=== PATIENT | female | born 1940 | race Caucasian/White ===

== ENCOUNTER 2017-04-07 08:32 | Inpatient (IN) | payer OTHER ==
[~2017-04-07] VITALS: Ht 157.5 cm; Wt 87.5 kg
[~2017-04-07 08:32] MED LIST: ALLOPURINOL100 MG PO; AMLODIPINE BESYL5 M1 PO; ATIVAN1 MG PO; BAY PO; COLACE100 MG PO; COZAAR100 MG PO; ESCITALOPRAM10 M1 PO; HYDROCODONE/ACE1 TA2 PO; IRON325 MG PO; LAC PO; LANTUS SOLOS100 U/M1 SQ; LASIX40 MG PO; LEV500 PO; LEVAQUIN750 MG PO; LIPI20 PO; LOR; METHIMAZOLE5 MG PO; METOPROLOL SUCC50 M2 PO; NOR10T PO; PRA40 PO; VITAMIN C100 M1 PO
--- NOTE | 2017-04-07 08:42 | NUR ---
PT BIBA FROM HOME WITH C/O SOB X1 DAY AND POSTERIOR NECK PAIN THAT RADIATES DOWN TO HER LOW BACK, DENIES ANY TRAUMA OR INJURY, PT DESCRIBES THE PAIN "SHARP", PT BREATHING IS EVEN AND UNLABORED, PLACED ON 2L NC FOR COMFORT, PT HAS HX OF DM AND DE, TAKES INSULIN, PER MEDICS BS 335, PT REPORTS SHE DID NOT TAKE ANY OF HER MEDICATIONS THIS AM, PT IS AAO4, NO ACUTE DISTRESS, NSR ON CM, PT REPORTS FEELING "TIRED" FOR "2 MONTHS", AWAITING MSE
--- NOTE | 2017-04-07 08:47 | NUR ---
DR. LEON AT BEDSIDE FOR MSE
--- NOTE | 2017-04-07 08:47 | NUR ---
MSE BY DR. LEON.
[2017-04-07 09:06] LABS: BASOPHIL % 0.3 % (0-2); PLATELET COUNT 137 x10^3mcL (130-400)
[2017-04-07 09:07] LABS: RED CELL DISTRIBUTION WIDTH 19.2 % (11.5-14.5)
[2017-04-07 09:31] LABS: CALCIUM 8.8 mg/dL (8.5-10.1); CARBON DIOXIDE 24.8 mmol/L (21-32); CHLORIDE SERUM 105 mmol/L (98-107); CREATININE SERUM 1.6 mg/dL (0.6-1.0); GLUCOSE SERUM 366 mg/dL (74-106); SODIUM SERUM 138 mmol/L (136-145)
[2017-04-07 09:35] LABS: ALKALINE PHOSPHATASE 96 U/L (46-116); ALT/SGPT 23 U/L (14-59); AST/SGOT 24 U/L (15-37); BILIRUBIN TOTAL 0.59 mg/dL (0.20-1.00); PHOSPHOROUS 2.8 mg/dL (2.5-4.9); TOTAL PROTEIN, SERUM 6.2 g/dL (6.4-8.2); URIC ACID 8.6 mg/dL (2.6-6.0)
[2017-04-07 09:36] LABS: ALBUMIN 3.1 g/dL (3.4-5.0); CHOLESTEROL 75 mg/dL (<200); HDL CHOLESTEROL 27 mg/dL (40-60)
--- NOTE | 2017-04-07 09:56 | NUR ---
PT SLEEPING EASILY AROUSABLE, NO ACUTE DISTRESS, DENIES PAIN AT THIS TIME AND REPORTS SOB HAS IMPROVED
--- NOTE | 2017-04-07 10:29 | NUR ---
PT SLEEPING, NO ACUTE DISTRESS, DAUGHTER AT BEDSIDE
--- NOTE | 2017-04-07 10:55 | NUR ---
DR. LEON AT BEDSIDE TO DISCUSS RESULTS AND PLAN OF CARE WITH PT AND PT DAUGHTER
[2017-04-07] MEDS ORDERED: LASIX80 MG PO (11:13)
[2017-04-07] MEDS ORDERED: ATORVASTATIN CA40 M1 PO (11:13)
[2017-04-07] MEDS ORDERED: COZAAR100 MG PO (11:14)
[2017-04-07] MEDS ORDERED: VITB12I (11:14)
[2017-04-07] MEDS ORDERED: ISOSORBIDE MONO30 MG PO (11:14)
[2017-04-07] MEDS ORDERED: ESCITALOPRAM10 M1 PO (11:14)
--- NOTE | 2017-04-07 11:14 | NUR ---
PT MEDICATED PER ORDER WITH REGULAR INSULIN 6 UNITS, VERIFIED WITH [facility] RN
--- NOTE | 2017-04-07 11:30 | NUR ---
REPORT TO LUIS BISHOP TO ASSUME CARE, PT TO BE TRANSFERRED TO ROOM 241B
--- NOTE | 2017-04-07 12:00 | NUR ---
REC PT VIA GURNEY FROM E.R. A/O X4. BREATHING EVEN AND UNLABORED ON 2L NC. VS:119/67. MAP 101. RESP 20. 02 99 ON 2L NC. TEMP 97.4 . DENIES ANY CHEST PAIN, SOB OR RESP DISTRESS AT THIS TIME. LUNGS CLEAR, S1 S2 PRESENT. BOWEL SOUNDS PRESENT IN ALL FOUR QUADS. SKIN WARM TO TOUCH AND INTACT. PT IS ABM WITH GEN WEAKNESS AT THIS TIME. PT DENIES ANY DIZZNESS OR WEAKNESS TO HER LOWER EXT. CALL LIGHT IN REACH. BED IN LOW POSITION. PT WILL USE CALL LIGHT IF SHE NEEDS ASSISTANCE.
[2017-04-07 12:50] VITALS: BP 119/67
[2017-04-07 13:38] LABS: RED BLOOD CELLS 4.43 M/mm3 (4.10-5.10)
[2017-04-07 13:42] LABS: T3 TOTAL 0.89 ng/mL
[2017-04-07 13:47] LABS: TOTAL IRON BINDING CAPACITY 361 ug/dL (250-450)
[2017-04-07 13:54] LABS: IRON 17 ug/dL (50-170)
[2017-04-07 13:59] LABS: FREE T4 1.1 ng/dL (0.76-1.46); FREE THYROXINE INDEX 2.2 ug/dL (1.4-4.5); T4(THYROXINE) 5.9 ug/dL (4.7-13.3)
[2017-04-07 14:00] VITALS: BP 136/58
--- NOTE | 2017-04-07 14:16 | NUR ---
PT ACCU CHECK 258. COVERED IT WITH [address] INS[address] LARISSA DUMONT.
[2017-04-07] MEDS ORDERED: METOPROLOL SUCC50 M2 PO (15:35)
[2017-04-07 17:48] VITALS: BP 146/65
--- NOTE | 2017-04-07 17:55 | NUR ---
PT BP 146/65. MAP 92. HR 68. DOCTOR LARISSA DUMONT.
--- NOTE | 2017-04-07 18:01 | NUR ---
LAB CALLED. PT TROPONIN 0.116. DOCTOR LARISSA AWARE.
--- NOTE | 2017-04-07 19:02 | NUR ---
PT IS RESTING IN BED WITH DAUGHTER BY HER SIDE. A/O X4 . TELE 56. NSR. ON 2L NC 98 02. IV TO THE RIGHT HAND. PATENT AND INTACT. PT DENIES ANY CHEST PAIN OR DISCOMFORT AT THIS TIME. CALL LIGHT IN REACH . BED IN LOW POSITION. PT KNOW TO CALL FOR ASSISTANCE. WILL ENDORSE PLAN OF CARE TO INCOMING NURSE.
--- NOTE | 2017-04-07 20:36 | NUR ---
RECEIVED PT IN BED EATING DINNER TOLERATING WELL , PT DENY N/V AT THE MOMENT , BS ACTIVE X4, ABD SOFT , LUNG SOUNDS CTA . ON TELE NUMBER 56 THAT SHOWS NSR HR 74,PIV INTACT INFUSING WELL . CALL LIGHT WITHIN PT ;S REACH , WILL CON'T TO MONITOR AND ASSIST PT WITH CARE .
[2017-04-07 21:27] VITALS: BP 134/45
[2017-04-08 05:40] VITALS: BP 123/61
[2017-04-08 06:26] LABS: BASOPHIL % 0.4 % (0-2); PLATELET COUNT 137 x10^3mcL (130-400)
[2017-04-08 06:29] LABS: microscopic required? YES; urine erythrocyte NEGATIVE (NEGATIVE)
--- NOTE | 2017-04-08 06:31 | NUR ---
NO CHANGES OF CONDITION NOTED ,ALL DUE MEDS GIVEN NO REATION NOTED, TELE NSR ,
[2017-04-08 06:34] LABS: CALCIUM 8.6 mg/dL (8.5-10.1); CARBON DIOXIDE 26.1 mmol/L (21-32); CHLORIDE SERUM 108 mmol/L (98-107); CREATININE SERUM 1.4 mg/dL (0.6-1.0); GLUCOSE SERUM 220 mg/dL (74-106); MAGNESIUM 2.1 mg/dL (1.8-2.4); PHOSPHOROUS 3.4 mg/dL (2.5-4.9); POTASSIUM SERUM 4.7 mmol/L (3.5-5.1); SODIUM SERUM 143 mmol/L (136-145)
[2017-04-08 06:45] LABS: RED CELL DISTRIBUTION WIDTH 19.8 % (11.5-14.5)
--- NOTE | 2017-04-08 07:50 | NUR ---
RECEIVED PT SITTING UP AT BEDSIDE, DENIES ANY DISCOMFORT. A/A/OX4 DENIES OGDEN. RESP EVEN AND UNLABORED WITH CLEAR BS BILAT. DENIES ANY SOB/CP/PRESURE AT THIS TIME. NO EDEMA NOTED. ABD SOFT, NONTENDER WITH ACTIVE BS X4. DENIES ANY N/V AT THIS TIME. VOIDING FREELY. CALL LIGHT IN REACH NEEDS ATTENDED TO.
[2017-04-08 09:04] VITALS: BP 132/51
[2017-04-08] MEDS ORDERED: NATURAL IRON65 MG PO (13:16)
[2017-04-08 13:45] VITALS: BP 144/48
[2017-04-08 14:04] VITALS: BP 144/48
[2017-04-08] MEDS ORDERED: PHARMASSURE VI500 MG PO (15:23)
[2017-04-08] MEDS ORDERED: GOOD SENSE ASPI81 M3 PO (15:23)
--- NOTE | 2017-04-08 15:40 | NUR ---
SPOKE WITH DR. MUÑOZ COVERING FOR DR. GLASS, MADE AWARE OF ELEVATION IN BS AT 355 AND PT REPORTED LANTUS DOSING NOT INDICATED IN D/C MED REC. CHECKED WITH PT'S PHAMACY AND COMFIRM PARTIAL DOSING. GAVE OK D/C PT AND INSTRUCT PT TO CONT HOME DOSE OF LANTUS. PT MADE AWARE, MAKING ARRANGEMENTS FOR TRANSPORTAION HOME.
--- NOTE | 2017-04-08 17:39 | NUR ---
PT PROVIDED WITH D/C HOME INSTRUCTIONS. GIVEN MEDICATION/PRESCRIPTION EDUCATION. MADE AWARE OF F/U APPT WITH PCP AND INSTRUCTED TO CALL DR. VELAZQUEZ'S OFFICE TO SCHEDULE APPT. PT VERBALIZED UNDERSTANDING OF INSTRUCTIONS. TELE AND IV D/C'D CATHETER INTACT. PT TRANSPORTED TO [facility] WITH ALL PERSONAL BELONGINGS IN HAND FREE OF ANY APPARENT DISTRESS.
== END 2017-04-08 17:42 | disposition home or self-care (01) | DRG 311 ==
LOC: ED 08:32 → DU 11:01
PROVIDERS: Emergency Medicine; ADMIT Family Medicine Sports Medicine
DX: I24.8 Other forms of acute ischemic heart disease (principal); N17.0 Acute kidney failure with tubular necrosis; I13.0 Hypertensive heart and chronic kidney disease with heart failure and stage 1 through stage 4 chronic kidney disease, or unspecified chronic kidney disease; E44.0 Moderate protein-calorie malnutrition; N18.2 Chronic kidney disease, stage 2 (mild); I50.9 Heart failure, unspecified; E11.22 Type 2 diabetes mellitus with diabetic chronic kidney disease; E11.65 Type 2 diabetes mellitus with hyperglycemia; E11.51 Type 2 diabetes mellitus with diabetic peripheral angiopathy without gangrene; D50.9 Iron deficiency anemia, unspecified; F32.9 Major depressive disorder, single episode, unspecified; E78.5 Hyperlipidemia, unspecified; I25.2 Old myocardial infarction; E66.9 Obesity, unspecified; Z68.35 Body mass index [BMI] 35.0-35.9, adult; Z86.73 Personal history of transient ischemic attack (TIA), and cerebral infarction without residual deficits; Z79.4 Long term (current) use of insulin; Z79.82 Long term (current) use of aspirin
CPT/HCPCS: 83880; 84439; J1815; J1885; J2060; J7030; J7040; J7060; Q0092

== ENCOUNTER 2018-01-21 14:25 | Emergency (ER) | payer OTHER ==
[~2018-01-21] VITALS: Ht 157.5 cm; Wt 84.8 kg
[~2018-01-21 14:25] MED LIST changes: +ATORVASTATIN CA40 M1 PO; +GOOD SENSE ASPI81 M3 PO; +ISOSORBIDE MONO30 MG PO; +LASIX80 MG PO; +NATURAL IRON65 MG PO; +PHARMASSURE VI500 MG PO; +VITB12I
[2018-01-21 14:35] VITALS: Ht 157.5 cm; Wt 84.8 kg
[2018-01-21 16:32] VITALS: BP 149/75
== END 2018-01-21 16:32 | disposition home or self-care (01) ==
LOC: ED 14:25
DX: S80.12XA Contusion of left lower leg, initial encounter (principal); S80.212A Abrasion, left knee, initial encounter; I10 Essential (primary) hypertension; E11.9 Type 2 diabetes mellitus without complications; I21.9 Acute myocardial infarction, unspecified; Z88.0 Allergy status to penicillin; Z88.5 Allergy status to narcotic agent; Z88.6 Allergy status to analgesic agent; W18.30XA Fall on same level, unspecified, initial encounter; Y93.89 Activity, other specified; Y92.89 Other specified places as the place of occurrence of the external cause; Y99.8 Other external cause status
CPT/HCPCS: 90715

== ENCOUNTER 2019-01-03 18:50 | Inpatient (IN) | payer OTHER ==
[~2019-01-03] VITALS: Ht 157.5 cm; Wt 86.6 kg
[2019-01-03 18:54] VITALS: Ht 157.5 cm; Wt 86.6 kg
--- NOTE | 2019-01-03 19:00 | NUR ---
EKG IN PROGRESS.
--- NOTE | 2019-01-03 19:11 | NUR ---
PT CAME TO ED CO FLANK PAIN X3 DAYS. PT STS SHE HAS EXPERIENCED N/V/D W/FLANK PAIN. PT STS SHE HAS BEEN SEEN HERE BEFORE FOR THIS SAME PAIN. PT STS THE PAIN IS MORE PROMINATE ON THE RIGHT SIDE AND RADIATES TO THE UPPER SHOULDER, RATING IT 10/10. PT STS SHE IS SCHEDULED FOR PACEMAKER SURGERY ON 01/11. PT STS SHE HAS PREOP APPOINTMENT ON THE 3RD. BUT COULDN'T WAIT BECAUSE SHE IS IN PAIN. NO S/S OF DISTRESS. RESP E/U. FAMILY AT BEDSIDE. COMFORT MEASURES IMPLEMENTED. CALL LIGHT W/IN REACH. AWAITING MSE. WILL CONTINUE TO MONITOR.
[2019-01-03 19:54] LABS: BASOPHIL % 0.4 % (0-2); RED CELL DISTRIBUTION WIDTH 12.8 % (11.5-14.5)
[2019-01-03 19:55] LABS: PLATELET COUNT 119 x10^3mcL (130-400)
[2019-01-03 20:12] LABS: ALKALINE PHOSPHATASE 162 U/L (46-116); ALT/SGPT 20 U/L (14-59); AST/SGOT 16 U/L (15-37); BILIRUBIN TOTAL 0.72 mg/dL (0.20-1.00); CALCIUM 8.7 mg/dL (8.5-10.1); CARBON DIOXIDE 18.5 mmol/L (21-32); CHLORIDE SERUM 107 mmol/L (98-107); CREATININE SERUM 3.4 mg/dL (0.6-1.0); GLUCOSE SERUM 271 mg/dL (74-106); POTASSIUM SERUM 4.8 mmol/L (3.5-5.1); SODIUM SERUM 143 mmol/L (136-145); TOTAL PROTEIN, SERUM 6.3 g/dL (6.4-8.2)
[2019-01-03 20:14] LABS: ALBUMIN 2.8 g/dL (3.4-5.0)
--- NOTE | 2019-01-03 20:20 | NUR ---
PT MEDICATED PER ORDER. PT VERBALIZED UNDERSTANDING OF MEDICATIONH TEACHING. SEE EMAR FOR DETAILS.
--- NOTE | 2019-01-03 20:21 | NUR ---
PT LAYING ON GURNEY IN POSITION OF COMFORT. EDUCATED PT ON TAKING SLOW CONTROLLED BREATHS. FAMILY AT BEDSIDE. PT STS PAIN MEDICATION IS HELPING W/HER PAIN, THE PAIN IS SLOWLY SUBSIDING.
--- NOTE | 2019-01-03 20:55 | NUR ---
ULTRASOUND AT BEDSIDE
[2019-01-03 21:14] LABS: UA SPECIFIC GRAVITY 1.015 (1.005-1.035); microscopic required? YES; urine erythrocyte TRACE (NEGATIVE)
--- NOTE | 2019-01-03 21:25 | NUR ---
PT LAYING ON GURNEY IN POSITION OF COMFORT. NO S/S OF DISTRESS. PT STS PAIN MADICATION RELIEVED HER PAIN. RESP E/U. COMFORT MEASURES IMPLEMENTED. FAMILY AT BEDSIDE. PT TAKEN TO CT SCAN.
--- NOTE | 2019-01-03 22:13 | NUR ---
PT LAYING ON GURNEY IN POSITION OF COMFORT. NO S/S OF DISTRESS. RESP E/U. PT STS SHE IS PAIN FREE. WILL CONTINUE TO MONITOR.
--- NOTE | 2019-01-03 22:52 | NUR ---
LAB AT BEDSIDE FOR BLOOD DRAW
--- NOTE | 2019-01-03 22:59 | NUR ---
LAB COMPLETED BLOOD DRAW. PT MEDICATED PER ORDER. PT VERBALIZED UNDERSTANDING OF MEDICATION TEACHING. SEE EMAR FOR DETAILS.
--- NOTE | 2019-01-03 23:11 | NUR ---
PT LAYING ON GURNEY IN POSITION OF COMFORT. PT GIVEN SOCKS AND A PILLOW FOR COMFORT. NO S/S OF DISTRESS. RESP E/U. PT VERBALIZED FREEDOM FROM PAIN. COMFORT MEASURES IMPLEMENTED. CALL LIGHT W/IN REACH. WILL CONTINUE TO MONITOR.
[2019-01-03] MEDS ORDERED: CEPHALEXIN500 MG PO (23:24)
[2019-01-03] MEDS ORDERED: HYDRALAZINE HCL25 MG PO (23:24)
[2019-01-03] MEDS ORDERED: ENTRESTO1 TA2 PO (23:24)
[2019-01-03 23:49] LABS: MAGNESIUM 2.1 mg/dL (1.8-2.4); PHOSPHOROUS 4.9 mg/dL (2.5-4.9)
[2019-01-03 23:54] LABS: CHOLESTEROL/HDL RATIO 4.3
--- NOTE | 2019-01-04 00:22 | NUR ---
REPORT TO EDNA ROSAS TO ASSUME CARE
--- NOTE | 2019-01-04 00:26 | NUR ---
PT TRANSFERRED TO [facility] FLOOR ACCOMPANIED BY NURSE AND EMT. PT CONNECTED TO MONTIOR DURING TRANSFER. RN AT BEDSIDE TO ASSUME CARE OF PT. IV SITE PATENT, NO S/S OF INFILTRATION.
--- NOTE | 2019-01-04 00:30 | NUR ---
RECEIVED PT VIA GUERNEY FROM E/D, ACCOMPANIED BY RN AND TRANSPORTER. PT A/A/O X 4, CALM, COOPERATIVE. PT W/ GENERALIZED WEAKNESS, AMBULATES W/ WALKER, W/C BY BEDSIDE, FALL RISK PROTOCOL IN PLACE. ON TELE # 7, HR 60, SA + BBB, DENIES CHEST PAIN OR DISCOMFORT AT THIS TIME. NO ACUTE RESPIRATORY DISTRESS NOTED. ABD SOFT, ROUND, NON-TENDER, NORMOACTIVE BOWEL SOUNDS X 4 QUADS, LAST BM 01/02/19, WATERY. VOIDS FREELY, C/O BURNING SENSATION UPON URINATION, DARK ORANGE URINE; C/O CONSTANT SHARP PAIN TO LEFT FLANK /10, EXACERBATED BY WALKING AND MOVEMENT, RELIEVED BY RESTING AND PAIN MEDICATION. IV SITE LFA 22G, CDI. ORIENTED PT TO ROOM, BED CONTROLS, CALL LIGHT SYSTEM. SIDE RAILS UP X 2, BED IN LOW POSITION. WILL ENDORSE TO EDNA RAMOS.
[2019-01-04 00:44] VITALS: BP 137/40
--- NOTE | 2019-01-04 01:29 | NUR ---
PATIENT STILL AWAKE WITH NO SIGN OF DISTRESS. BREATHING EASY AND NONLABOR SATTING AT 99% RA. DENIES PAIN AND DISCOMFORT AT THIS TIME, PATIENT MEDICATED FOR PAIN EARLIER IN ER. WITH ADMISSION ORDERS AND TO CARRY OUT. WILL CONTINUE TO MONITOR. CALL LIGHT WITHIN REACH.
--- NOTE | 2019-01-04 05:08 | NUR ---
SLEPT FAIRLY DENIES PAIN AND DISCOMFORT SINCE PATIENT ADMIITED TO FLOOR. ALL NEEDS ATTENDED.
[2019-01-04 06:11] LABS: BASOPHIL % 0.5 % (0-2); RED CELL DISTRIBUTION WIDTH 12.9 % (11.5-14.5)
[2019-01-04 06:24] LABS: POTASSIUM SERUM 4.1 mmol/L (3.5-5.1); SODIUM SERUM 146 mmol/L (136-145)
[2019-01-04 06:40] LABS: PLATELET COUNT 94 x10^3mcL (130-400)
--- NOTE | 2019-01-04 06:51 | NUR ---
AWAKE THIS TIME C/O NAUSEA ZOFRAN 4MG IV GIVEN PRESCRIBED. WILL ENDORSE CONTINOUS CARE TO AM SHIFT.
[2019-01-04 06:59] LABS: CALCIUM 8.1 mg/dL (8.5-10.1); CARBON DIOXIDE 22.2 mmol/L (21-32); CHLORIDE SERUM 111 mmol/L (98-107); CREATININE SERUM 3.3 mg/dL (0.6-1.0); GLUCOSE SERUM 175 mg/dL (74-106)
--- NOTE | 2019-01-04 08:00 | NUR ---
RECEIVED PATIENT A/A/OX4; CLEAR SPEECH. TELE#7; SB; HR =52. DENIED CHEST PAIN NOW. NO RESP DISTRESS ON RA. IVHL'D TO L WRIST. GENERAL WEAKNESS. USE WHEELCHAIR AT HOME. URINE INCONT. C/O DIARRHEA YESTERDAY. DENIED ABD PAIN. CALL LIGHT IN REACH.
--- NOTE | 2019-01-04 10:00 | NUR ---
PINEDA CATHETER 16 FR INSERTED PER ORDER. 250CC OF YELLOW URINE OUTPUT COLLECTED.
[2019-01-04 10:24] LABS: CARBON DIOXIDE 23.6 mmol/L (21-32); MAGNESIUM 2.1 mg/dL (1.8-2.4); PHOSPHOROUS 4.9 mg/dL (2.5-4.9)
--- NOTE | 2019-01-04 11:44 | NUR ---
DR. LUNA CAME TO SEE APTIENT. NEW ORDER OF IVF OF 1/2 NS 100CC/HR CARRIED OUT.
--- NOTE | 2019-01-04 12:39 | NUR ---
ECHOCARDIOGRAM PENDING-HAD ECHO TWO WEEKS AGO-[facility]
[2019-01-04 13:32] VITALS: BP 140/64
--- NOTE | 2019-01-04 15:00 | NUR ---
HAD DIARRHEA VIA BRP. STOOL COLLECTED FOR LAB TEST.
--- NOTE | 2019-01-04 18:00 | NUR ---
DR WILLIS CAME TO SEE PATIENT. REPORTED TO DR. WILLIS WITH PATIENT'S HR 50-56, SB W/ PVC'S. REPORTED TOPROL AND IMDUR-ER WERE HOLD THIS MORNING DUE TO PATIENT'S HR = 52. NEW ORDER WRITTEN.
[2019-01-04 18:27] VITALS: BP 126/54
--- NOTE | 2019-01-04 19:35 | NUR ---
RECEIVED REPORT FROM DAY SHIFT RN. PT RESTING IN BED. AA&O X4. NO SOB ON ROOM AIR. BREATHING EVEN AND UNLABORED. NO C/O PAIN AT THIS TIME. SALINE LOCK TO LFA, INTACT. PINEDA CATHETER IN PLACE. DRAINING YELLOW URINE BY GRAVITY. SAFETY MEASURES IN PLACE. BED IN LOWEST POSITION. SIDE RAILS UP X2. INSTRUCTED PT TO USE THE CALL LIGHT FOR ASSISTANCE. CALL LIGHT WITHIN REACH. FAMILY AT BEDSIDE.
[2019-01-04 21:39] VITALS: BP 132/54
--- NOTE | 2019-01-05 04:34 | NUR ---
PT RESTING WITH EYES CLOSED. BREATHING EVEN AND UNLABORED. NO DISTRESS NOTED. CALL LIGHT WITHIN REACH. WILL CONTINUE TO MONITOR.
[2019-01-05 06:12] VITALS: BP 138/59
[2019-01-05 06:28] LABS: BASOPHIL % 0.5 % (0-2); RED CELL DISTRIBUTION WIDTH 13.2 % (11.5-14.5)
[2019-01-05 06:33] LABS: CALCIUM 8.6 mg/dL (8.5-10.1); CARBON DIOXIDE 20.5 mmol/L (21-32); CHLORIDE SERUM 112 mmol/L (98-107); CREATININE SERUM 2.6 mg/dL (0.6-1.0); GLUCOSE SERUM 113 mg/dL (74-106); MAGNESIUM 2.2 mg/dL (1.8-2.4); PHOSPHOROUS 4.1 mg/dL (2.5-4.9); POTASSIUM SERUM 4.2 mmol/L (3.5-5.1); SODIUM SERUM 145 mmol/L (136-145)
[2019-01-05 06:37] LABS: PLATELET COUNT 92 x10^3mcL (130-400)
[2019-01-05 06:50] LABS: ALBUMIN 2.3 g/dL (3.4-5.0)
--- NOTE | 2019-01-05 06:50 | NUR ---
PT SLEPT AT LONG INTERVALS DURING SHIFT. NO SOB ON ROOM AIR. NO C/O CHEST PAIN. NO ACUTE DISTRESS NOTED. SAFETY MEASURES MAINTAINED. CALL LIGHT WITHIN REACH. WILL ENDORSE CONTINUITY OF CARE TO ONCOMING RN.
--- NOTE | 2019-01-05 07:30 | NUR ---
PT IS AAOX4. FOLLOWS COMMANDS. CAN MAKE NEEDS KNOWN. PT NOTED WITH R EAR ANGOON. TELE [address] READING SINUS LUANNE WITH PVCS. PT DENIES H/A AND DIZZINESS. RESP EVEN AND UNLABORED. LUNG SOUNDS CTA. ON R/A. PT NOTED WITH BLE TRACE EDEMA. PERIPHERAL PULSES PALPABLE. CAP REFILL <3 SECS. DENIES NUMBNESS AND TINGLING. ABDOMEN SOFT, NONTENDER, NONDISTENDED. BOWEL SOUNDS ACTIVE. DENIES N/V. SKIN CDI. IVF RUNNING TO LFA, SITE PATENT WITH NO S/S OF INFECTION OR INFILTRATION NOTED. DENIES PAIN AT THIS TIME. CALL LIGHT WITHIN REACH. BED IN LOWEST POSITION. FALL PROTOCOL MAINTAINED.
--- NOTE | 2019-01-05 07:35 | NUR ---
PT IS AAOX4. FOLLOWS COMMANDS, VERBALLY RESPONSIVE. RESP EVEN AND UNLABORED. LUNG SOUNDS CTA, ON R/A. TELE [address] READING SINUS LUANNE WITH PVCS. PT DENIES C/P, PRESSURE. ABDOMEN SOFT, NONTENDER, NONDISTENDED. BOWEL SOUNDS ACTIVE. DENIES N/V. SKIN CDI. PERIPHERAL PULSES PALPABLE. CAP REFILL <3 SECS. DENIES NUMBNESS AND TINGLING. IVF RUNNNING TO LFA, SITE WNL, NO S/S OF INFECTION OR INFILTRATION NOTED. PT DENIES PAIN OR DISCOMFORT AT THIS TIME. CALL LIGHT WITHIN REACH. FALL PROTOCOL MAINTAINED.
[2019-01-05 08:49] VITALS: BP 119/69
--- NOTE | 2019-01-05 09:29 | NUR ---
COREG PO HELD, HR 56. DR. RIOS MADE AWARE. DUE MEDS GIVEN. PT EDUCATED ON PARAMETERS OF STRICT I&O. PT HAS 700ML OF ORAL FLUID SHE CAN TAKE TODAY. PT VERBALIZED UNDERSTANDING. PT IS SITTING UP IN BED. RESP EVEN AND UNLABORED. NO DISTRESS NOTED. CALL LIGHT WITHIN REACH.
--- NOTE | 2019-01-05 11:28 | NUR ---
REPORTED TO DR. RIOS PT'S VQ SCAN HAS BEEN COMPLETED. DR. RIOS STATED HE IS AWARE.
--- NOTE | 2019-01-05 11:33 | NUR ---
DR. JAMA AND MEDICAL TEAM MET WITH PT AND DISCUSSED POC. PT IS STAY ONE MORE MIDNIGHT AND RECEIVE IV FLUIDS. PT WILL BE ASSESSED TOMORROW AND IF SHOWS IMPROVEMENT WILL D/C THEN. PT AGREED WITH POC.
--- NOTE | 2019-01-05 12:00 | NUR ---
BS 248, 6 UNITS INSULIN GIVEN. IV FLUIDS RESPLENISHED. RESP EVEN AND UNLABORED. NO DISTRESS NOTED. DENIES PAIN. CALL LIGHT WITHIN REACH.
[2019-01-05 12:51] VITALS: BP 131/54
--- NOTE | 2019-01-05 14:05 | NUR ---
ECHOCARDIOGRAM PENDING-WITH NURSE
--- NOTE | 2019-01-05 15:05 | NUR ---
BLOOD PRESSURE MEDS GIVEN, B/P 119/65 (83), HR 60. PT DENIES PAIN. NO DISTRESS NOTED.
--- NOTE | 2019-01-05 15:59 | NUR ---
DR. FORMAN SPOKE WITH PT AND DISCUSSED POC. DR. FORMAN STATED HE WILL SPEAK WITH DR. RIOS AND INFORM HIM THAT THE PT IS GOOD TO DISCHARGE TO HOME. PT MUST MAINTAIN GOOD HYDRATION AND FOLLOW UP WITH SAILING MASTER. PT AGREED WITH POC.
[2019-01-05] MEDS ORDERED: FLA500 PO (16:33)
[2019-01-05] MEDS ORDERED: LEVAQUIN750 MG PO (16:35)
[2019-01-05] MEDS ORDERED: LAC PO (16:36)
[2019-01-05 16:46] VITALS: BP 131/54
[2019-01-05 17:01] VITALS: BP 118/56
--- NOTE | 2019-01-05 17:23 | NUR ---
PINEDA CATH REMOVED INTACT, 10ML WATER REMOVED FROM [place]. PT TOLERATED PROCEDURE WELL. PT EDUCATED TO ASSESS FOR URINE RETENTION AND REPORT TO MD IF URINE RETENTION OCCURS. PT TAUGHT TO DRINK FLUID THROUGH OUT THE DAY TO FLUSH KIDNEYS AND URNIARY TRACT. PT VERBALIZED UNDERSTANDING. PT DENIES PAIN AT THIS TIME. NO DISTRESS NOTED. CALL LIGHT WITHIN REACH.
--- NOTE | 2019-01-05 18:10 | NUR ---
PT DISCHARGED TO HOME IN NO DISTRESS. DISCHARGE INSTRUCTIONS REVIEWED. ALL FORMS SIGNED AND QUESTIONS ANSWERED. RX GIVEN TO PT. IV CATH TO LFA REMOVED INTACT, SITE WNL. NO S/S OF INFECTION OR INFILTRATION. SITE COVERED WITH GAUZE AND BANDAID. VS: 98.5, 69, 118/56, 94% ON R/A. DENIES PAIN AT TIME OF DISCHARGE. ALL PERSONAL BELONGINGS TAKEN HOME.
--- NOTE | 2019-01-06 07:46 | NUR ---
ECHOCARDIOGRAM NOT DONE-DISCHARGED
== END 2019-01-05 18:03 | disposition home or self-care (01) | DRG 291 ==
LOC: ED 18:50 → DU 23:13 → MU 01-05 13:59
PROVIDERS: Emergency Medicine; Internal Medicine; Internal Medicine Nephrology; ADMIT Internal Medicine
DX: I13.0 Hypertensive heart and chronic kidney disease with heart failure and stage 1 through stage 4 chronic kidney disease, or unspecified chronic kidney disease (principal); N17.0 Acute kidney failure with tubular necrosis; J96.00 Acute respiratory failure, unspecified whether with hypoxia or hypercapnia; E43 Unspecified severe protein-calorie malnutrition; N39.0 Urinary tract infection, site not specified; E87.0 Hyperosmolality and hypernatremia; I50.9 Heart failure, unspecified; R06.03 Acute respiratory distress; K52.9 Noninfective gastroenteritis and colitis, unspecified; E11.65 Type 2 diabetes mellitus with hyperglycemia; E11.22 Type 2 diabetes mellitus with diabetic chronic kidney disease; D69.6 Thrombocytopenia, unspecified; R32 Unspecified urinary incontinence; N18.9 Chronic kidney disease, unspecified; E78.5 Hyperlipidemia, unspecified; Z68.34 Body mass index [BMI] 34.0-34.9, adult; Z79.84 Long term (current) use of oral hypoglycemic drugs; Z79.82 Long term (current) use of aspirin
CPT/HCPCS: 78598; 82962; 83880; 85378; 87046; 87046-59; A9540; G0378; J1650; J1956; J2270; J2405; J3490; Q0092